=== PATIENT | female | born 2000 | race Caucasian/White ===

== ENCOUNTER 2019-01-25 00:46 | Emergency (ER) | payer MEDICAID ==
[~2019-01-25] VITALS: Ht 162.6 cm; Wt 109.8 kg
[2019-01-25 00:50] VITALS: Ht 162.6 cm; Wt 109.8 kg
[2019-01-25 02:37] VITALS: BP 133/96
== END 2019-01-25 02:37 | disposition home or self-care (01) ==
LOC: ED 00:46
DX: M54.5 Low back pain (principal); X50.0XXA Overexertion from strenuous movement or load, initial encounter; X50.9XXA Other and unspecified overexertion or strenuous movements or postures, initial encounter; Y93.89 Activity, other specified; Y92.89 Other specified places as the place of occurrence of the external cause; Y99.8 Other external cause status
CPT/HCPCS: G0480